=== PATIENT | female | born 1950 | race Two or more races ===

== ENCOUNTER 2018-06-14 11:00 | Emergency (ER) | payer MEDICARE, OTHER ==
[~2018-06-14] VITALS: Ht 160 cm; Wt 93.0 kg
[2018-06-14 11:42] VITALS: BP 140/89
[2018-06-14] MEDS ORDERED: TETRACAINE HCL 0.5% OPTH(EYE) SOLN 4ML RIGHTEYE ONE (12:30)
[2018-06-14] MEDS ORDERED: FLUORESCEIN SOD 1 MG TEST STRIP RIGHTEYE ONE (13:00)
== END 2018-06-14 13:32 | disposition home or self-care (01) ==
LOC: ER 11:00
DX: H10.9 Unspecified conjunctivitis (principal); M19.90 Unspecified osteoarthritis, unspecified site; Z88.5 Allergy status to narcotic agent; Z88.1 Allergy status to other antibiotic agents; Z88.8 Allergy status to other drugs, medicaments and biological substances; Z90.49 Acquired absence of other specified parts of digestive tract